=== PATIENT | female | born 1945 | race Caucasian/White ===

== ENCOUNTER 2018-08-31 18:26 | Inpatient (IN) | payer MEDICARE, OTHER ==
[~2018-08-31] VITALS: Ht 160 cm; Wt 72.6 kg
[2018-08-31] MEDS ORDERED: HYDROCODON-ACE1 EA10 PO (21:08)
[2018-08-31] MEDS ORDERED: GLUCOTROL 5 MG T5 MG PO (21:09)
[2018-08-31] MEDS ORDERED: HCTZ25 MG PO (21:10)
[2018-08-31] MEDS ORDERED: REQUIP0.25 MG PO (21:11)
[2018-08-31] MEDS ORDERED: NEURONTIN600 MG PO (21:12)
[2018-08-31] MEDS ORDERED: ELAVIL25 MG PO (21:12)
[2018-08-31] MEDS ORDERED: LIPITOR80 MG PO (21:12)
[2018-08-31] MEDS ORDERED: SILVADENE20 GM TP (21:13)
[2018-08-31] MEDS ORDERED: ZESTRIL40 MG PO (21:13)
[2018-08-31] MEDS ORDERED: PLAVIX75 MG PO (21:13)
[2018-08-31 21:35] LABS: BASOPHILS 0.2 % (0-2); EOSINOPHILS 0.2 % (0-7); HEMATOCRIT 44.5 % (36.0-48.0); HEMOGLOBIN 15.6 g/dL (12-16); IMMATURE GRANULOCYTES 0.5 % (0-5); LYMPHOCYTES 21.4 % (15-50); MCH 35.3 pg (26.0-34.0); MCHC 35.1 g/dL (31.0-37.0); MCV 100.7 fL (80.0-100.0); MEAN PLATELET VOLUME 9.3 fL (7.4-10.4); NEUTROPHILS 66.7 % (40-80); PLATELET COUNT 171 10x3/uL (130-400); RBC 4.42 10x6/uL (4.00-5.40); RDW 13.5 % (11.5-14.5); WBC 14.8 10x3/uL (4.8-10.8)
[2018-08-31 21:47] LABS: ALBUMIN 3.7 g/dL (3.4-5.0); ANION GAP 16.6 mmol/L (8-16); BILIRUBIN - TOTAL 0.86 mg/dL (0.2-1.3); CALCIUM 9.9 mg/dL (8.5-10.1); CARBON DIOXIDE 24.1 mmol/L (21.0-32.0); CREATININE - SERUM 1.1 mg/dL (0.6-1.3); POTASSIUM - SERUM 3.7 mmol/L (3.5-5.1); PROTEIN - SERUM 8.1 g/dL (6.4-8.2)
[2018-08-31 23:01] VITALS: BP 156/70; BMI 28.4
--- NOTE | 2018-08-31 23:10 | NUR ---
PT CONTINUES TO YELL HELP OUTSIDE ROOM. AT BEDSIDE. WILL CONTINUE POC.
--- NOTE | 2018-09-01 00:38 | NUR ---
DOC TO FLOOR TO ASSESS PT. ORDERED MRI BRAIN WITHOUT CONTRAST. TOLD TO GIVE 10 OF GEODON 30MIN PRIOR TO MRI. AWAITING CALL FROM RADIOLOGY FOR MRI ARRIVAL TIME TO TIME MED. ALSO OBTAINED ORDER FOR PIKE PLACEMENT. WILL CONTINUE POC.
--- NOTE | 2018-09-01 01:21 | NUR ---
RADHA GIVEN AT 0115. MRI IN BUILDING GETTING ROOM READY. WILL GIVE MEDS 25-30 MIN TO TAKE EFFECT. WILL ACCOMPANY PT TO MRI. WILL CONTINUE POC.
--- NOTE | 2018-09-01 03:37 | NUR ---
ATTEMPTED TO DO MRI BRAIN ON PT AFTER SEVERAL DOSES OF MEDS. COULD NOT GET DIAGNOSTIC IMAGES DUE TO MOTION ARTIFACT. CALLED DR TAPIA AND HE HAD ME ORDER CT BRAIN WITHOUT INSTEAD. PT TAKEN TO CT FOR SCAN PRIOR TO RETURNING TO HER ROOM. PT'S NURSE FRANCISCO YU WAS WITH ME DURING THIS PROCESS.
--- NOTE | 2018-09-01 03:43 | NUR ---
WHILE IN MRI CALLED DOC TO NOTIFY SHE WOULDNT STAY SILL HE ORDERED ANOTHER 10 OF GEODON. GIVEN IN MRI. AFTER WAITING A 25-30 MIN PT WILL NOT REMAIN STILL. GENERAL MAINTENANCE HELPER CALLED DOC AND OBTAINED ORDER FOR CT HEAD WITHOUT CONTRAST. WILL CONTINUE POC.
[2018-09-01 04:00] VITALS: BP 129/75
[2018-09-01 06:03] LABS: APPEARANCE HAZY (CLEAR); BILIRUBIN NEGATIVE (NEGATIVE); COLOR YELLOW (YELLOW); GLUCOSE NEGATIVE (NEGATIVE); KETONE NEGATIVE (NEGATIVE); NITRITE NEGATIVE (NEGATIVE); PROTEIN TRACE mg/dL (NEGATIVE); RED CELLS - URINE 0-5 /hpf (0-5); SPECIFIC GRAVITY 1.005 (1.005-1.020); UROBILINOGEN NORMAL (NORMAL)
--- NOTE | 2018-09-01 08:30 | NUR ---
PATIENT IN BED WITH IV INTACT. NO COMPLAINTS OR SIGNS OF DISTRESS. LAYING WITH EYES CLOSED. FAMILY AT BEDSIDE. CALL LIGHT WITHIN REACH.
[2018-09-01 09:33] VITALS: BP 144/72
[2018-09-01 10:13] LABS: BASOPHILS 0.2 % (0-2); EOSINOPHILS 0.5 % (0-7); HEMATOCRIT 43.9 % (36.0-48.0); HEMOGLOBIN 15.5 g/dL (12-16); IMMATURE GRANULOCYTES 0.3 % (0-5); LYMPHOCYTES 15.4 % (15-50); MCHC 35.3 g/dL (31.0-37.0); MCV 99.1 fL (80.0-100.0); MEAN PLATELET VOLUME 9.1 fL (7.4-10.4); MONOCYTES 9.6 % (2-11); PLATELET COUNT 157 10x3/uL (130-400); RBC 4.43 10x6/uL (4.00-5.40); RDW 13.4 % (11.5-14.5)
[2018-09-01 10:16] LABS: WBC 19.4 10x3/uL (4.8-10.8)
[2018-09-01 10:30] LABS: ANION GAP 19.1 mmol/L (8-16); CALCIUM 9.7 mg/dL (8.5-10.1); CARBON DIOXIDE 20.8 mmol/L (21.0-32.0); CREATININE - SERUM 1.1 mg/dL (0.6-1.3); POTASSIUM - SERUM 3.9 mmol/L (3.5-5.1)
[2018-09-01 10:56] VITALS: Ht 160 cm; Wt 72.6 kg
--- NOTE | 2018-09-01 11:10 | NUR ---
PATIENT IN BED WITH EYES OPEN AT THIS TIME. BSCDS ON AND WORKING. NO SKIN BREAKDOWN NOTED. IV INTACT. FAMILY AT BEDSIDE. CALL LIGHT WITHIN REACH. BA ON.
--- NOTE | 2018-09-01 13:55 | NUR ---
PATIENT SITTING IN BED WITH EYES OPEN, NO COMPLAINTS OR SIGNS OF DISTRESS. FAMILY AT BEDSIDE. IV INTACT. CALL LIGHT WITHIN REACH.
[2018-09-01 14:06] VITALS: BP 139/73
--- NOTE | 2018-09-01 16:30 | NUR ---
PATIENT TO GET MRI SOON. UNABLE TO TELL IF PATIENT IS GOING TO BE ABLE TO HOLD STILL. PATIENT NOT CONFUSED AND ANXIOUS LAST NIGHT. IV INTACT. PIKE INTACT. CALL LIGHT WITHIN REACH.
[2018-09-01 18:33] VITALS: BP 134/65
--- NOTE | 2018-09-01 18:55 | NUR ---
PATIENT IN BED WITH IV INTACT. NEW NICOTINE PATCH PLACED DUE TO OLD ONE FALLING OFF. PIKE INTACT. CALL LIGHT WITHIN REACH.
--- NOTE | 2018-09-01 19:15 | NUR ---
RECEIVED CARE FROM DAY NURSE. LYING IN BED ON LEFT SIDE. SPOUSE AT BEDISE. CALLING OUT AND NOT ANSWERING QUESTIONS. CALL LIGHT AT SPOUSES SIDE.
[2018-09-01 20:00] VITALS: BP 124/81
[2018-09-02] VITALS: BP 112/70
--- NOTE | 2018-09-02 02:35 | NUR ---
ASSESSED, PT IS AWAKE AND HOLLERING BUT DOSENT APPEAR TO BE IN ANY PAIN. IS AT THE BEDSIDE HOLDING HER HAND. RESPIRATIONS ARE EASY AND UNLABORED.
[2018-09-02 04:00] VITALS: BP 123/57
[2018-09-02 05:08] LABS: BASOPHILS 0.2 % (0-2); HEMATOCRIT 41.2 % (36.0-48.0); HEMOGLOBIN 14.4 g/dL (12-16); IMMATURE GRANULOCYTES 0.3 % (0-5); LYMPHOCYTES 21.1 % (15-50); MCH 35.4 pg (26.0-34.0); MEAN PLATELET VOLUME 9.1 fL (7.4-10.4); MONOCYTES 9.4 % (2-11); PLATELET COUNT 173 10x3/uL (130-400); RBC 4.07 10x6/uL (4.00-5.40); RDW 13.4 % (11.5-14.5); WBC 15.4 10x3/uL (4.8-10.8)
[2018-09-02 05:12] LABS: MCV 101.2 fL (80.0-100.0)
[2018-09-02 05:22] LABS: ANION GAP 16.1 mmol/L (8-16); CALCIUM 9.6 mg/dL (8.5-10.1); CARBON DIOXIDE 23.6 mmol/L (21.0-32.0); CREATININE - SERUM 1.3 mg/dL (0.6-1.3); POTASSIUM - SERUM 3.7 mmol/L (3.5-5.1)
[2018-09-02 08:59] VITALS: BP 134/65
--- NOTE | 2018-09-02 11:15 | NUR ---
CONFUSION NOTED WITH PRESENT. YELLS OUT AT TIMES. NPO DUE TO DYSPHASIA. PATIENT ALSSO HAVING INSOMNIA PIKE CATH PATENT WITH SAM URINE. FALL RISK INTERVENTIONS IN PLACE.ENCOURAGE TO USE CALL LIGHT FOR ASSIST.LT. HEMIPARALYSIS NOTED.
[2018-09-02 13:20] VITALS: BP 148/86
[2018-09-02 17:21] VITALS: BP 158/84
--- NOTE | 2018-09-02 19:15 | NUR ---
RECEIVED CARE FROM DAY NURSE. LYING IN BED WITH SPOUSE AT SIDE. CALLING OUT. SPOUSE REPORTS NO NEEDS AT THIS TIME. PROCAL AND NS INFUSING TO LEFT FA. CALL LIGHT AT SPOUSES SIDE.
[2018-09-02 19:56] VITALS: BP 137/77
[2018-09-03 04:00] VITALS: BP 112/74
--- NOTE | 2018-09-03 05:44 | NUR ---
RN NOTE: PT BATHED AND ALL LINEN AND GOWN CHANGED. HEELS BRIDGED. SCD'S IN PLACE IV IN LEFT FA PATENT WITH PROCAL INFUSING AT 50 ML / HR. AND NS INFUSING AT 50 ML / HR. SPOUSE IS AT BEDSIDE. WILL CONTINUE TO MONITOR FOR NEEDS. CALL LIGHT WITHIN REACH.
[2018-09-03 06:31] LABS: BASOPHILS 0.2 % (0-2); EOSINOPHILS 2.5 % (0-7); HEMATOCRIT 37.5 % (36.0-48.0); HEMOGLOBIN 12.9 g/dL (12-16); IMMATURE GRANULOCYTES 0.2 % (0-5); LYMPHOCYTES 21.9 % (15-50); MCH 34.8 pg (26.0-34.0); MCHC 34.4 g/dL (31.0-37.0); MCV 101.1 fL (80.0-100.0); MEAN PLATELET VOLUME 9.2 fL (7.4-10.4); MONOCYTES 7.1 % (2-11); NEUTROPHILS 68.1 % (40-80); PLATELET COUNT 142 10x3/uL (130-400); RBC 3.71 10x6/uL (4.00-5.40); RDW 13.5 % (11.5-14.5)
[2018-09-03 06:55] LABS: ANION GAP 18.6 mmol/L (8-16); CALCIUM 9.1 mg/dL (8.5-10.1); CARBON DIOXIDE 19.4 mmol/L (21.0-32.0)
[2018-09-03 08:32] VITALS: BP 133/58
--- NOTE | 2018-09-03 10:19 | NUR ---
ALERT TO SELF AND . DECREASED YELLING NOTED. STATED SLEPT BETTER LAST NIGHT. IVF INFUSING AT PRESCRIBED RATE VIA LT. FOREARM. ELECTOLYTE PROTOCOL ESTABLISHED FOR k-3.0. LT. HEMIPARALYSIS NOTED. LUNGS CTA. PIKE CATH PATENT WITH SAM URINE.ENCOURAGED TO USE CALL LIGHT FOR ASSIST.
[2018-09-03 16:58] VITALS: BP 157/84
--- NOTE | 2018-09-03 19:15 | NUR ---
RECEIVED CARE FROM DAY NURSE. LYING IN BED ON SIDE. SPOUSE AT BEDSIDE. PT NOW ABLE TO ANSWER QUESTIONS AND THUS FAR HAS NOT CALLED OUT. IV TO LEFT FA PATENT AND INFUSING NS AND PROCAL PER ORDER. NO NEEDS VOICED AT THIS TIME.
[2018-09-03 20:00] VITALS: BP 149/58
--- NOTE | 2018-09-04 03:32 | NUR ---
RESTING QUITELY IN BED RESP UNLABOARED NO APPARENT DISTRESS CALL LIGHT IN REACH
[2018-09-04 04:00] VITALS: BP 98/64
--- NOTE | 2018-09-04 05:20 | NUR ---
IV IN LEFT FA LEAKING RED AND SWOLLEN. DC'D WITH TIP INTACT. RESTIED TO RIGHT FA. 20 GUAGE X1 STICK WITH GOOD BLOOD RETURN NOTED. NEW BAND AID APPLIED TO LEFT FA QUARTER SIZED SKIN TEAR.
[2018-09-04 06:26] LABS: BASOPHILS 0.2 % (0-2); EOSINOPHILS 4.5 % (0-7); HEMATOCRIT 35.1 % (36.0-48.0); HEMOGLOBIN 11.9 g/dL (12-16); IMMATURE GRANULOCYTES 0.3 % (0-5); LYMPHOCYTES 18.8 % (15-50); MCH 34.3 pg (26.0-34.0); MCHC 33.9 g/dL (31.0-37.0); MCV 101.2 fL (80.0-100.0); MEAN PLATELET VOLUME 9.5 fL (7.4-10.4); MONOCYTES 7.3 % (2-11); NEUTROPHILS 68.9 % (40-80); PLATELET COUNT 134 10x3/uL (130-400); RBC 3.47 10x6/uL (4.00-5.40); RDW 13.5 % (11.5-14.5); WBC 10.1 10x3/uL (4.8-10.8)
[2018-09-04 06:46] LABS: CARBON DIOXIDE 17.5 mmol/L (21.0-32.0); CREATININE - SERUM 0.9 mg/dL (0.6-1.3); POTASSIUM - SERUM 3.5 mmol/L (3.5-5.1)
[2018-09-04 08:25] VITALS: BP 151/50
--- NOTE | 2018-09-04 10:25 | NUR ---
MORE ALERT TO PERSON AND FAMILIAR FACES. EXPRESSIVE APHASIA NOTED. REPOSITIOED QW 2 HRS. SPEECH HERE FOR BED SIDE SWALLOW STUDY.LUNGS CTA ABDOMEN SOFT WITH BS NOTED. IVF INFUSING AT PRESRIBED RATE. LT. HEMIPARALYSIS NOTED. ENCOURAGED TO USE CALL LIGHT FOR ASSIST.
[2018-09-04 13:31] VITALS: BP 143/63
--- NOTE | 2018-09-04 15:04 | NUR ---
NUTRITION F/U CHART REVIEWED. PT CONTINUES PROCALAMINE AT 50 CC/HR. SPEECH NOTE REVIEWED. TO START PUREED DIET WITH THIN LIQUIDS. RD FOLLOWING
[2018-09-04 17:05] VITALS: BP 153/56
--- NOTE | 2018-09-04 19:06 | NUR ---
LCTA BOWEL SOUNDS X4 PIKE TO GRAVITY FIXED LOOP AT THIS TIME SCD REPLACED PT CO OF PAIN IN RT KNEE OF 10..SEE MAR SRUP X2 BED LOW AND CALL LIGHT IS IN REACH, FAMILY IS ALSO PRESENT
[2018-09-04 20:00] VITALS: BP 123/54
--- NOTE | 2018-09-05 01:02 | NUR ---
AT RESTY WITH EYES CLOSED BED LOW SRX2 AND CALL LIGHT IN REACH
--- NOTE | 2018-09-05 02:53 | NUR ---
EYES CLOSED RESPIRATIONS WITH EASE AND UNLABORED. SR UP X2 CALL LIGHT WITHIN REACH.
[2018-09-05 04:00] VITALS: BP 153/50
[2018-09-05 06:10] LABS: BASOPHILS 0.3 % (0-2); EOSINOPHILS 7.1 % (0-7); HEMATOCRIT 32.8 % (36.0-48.0); HEMOGLOBIN 11.2 g/dL (12-16); IMMATURE GRANULOCYTES 0.4 % (0-5); MCH 34.6 pg (26.0-34.0); MCHC 34.1 g/dL (31.0-37.0); MCV 101.2 fL (80.0-100.0); MEAN PLATELET VOLUME 9.3 fL (7.4-10.4); NEUTROPHILS 61.2 % (40-80); PLATELET COUNT 127 10x3/uL (130-400); RBC 3.24 10x6/uL (4.00-5.40); RDW 13.4 % (11.5-14.5); WBC 7.9 10x3/uL (4.8-10.8)
[2018-09-05 06:16] LABS: ANION GAP 15.4 mmol/L (8-16); CALCIUM 8.4 mg/dL (8.5-10.1); CARBON DIOXIDE 18.8 mmol/L (21.0-32.0); CREATININE - SERUM 0.9 mg/dL (0.6-1.3); POTASSIUM - SERUM 3.2 mmol/L (3.5-5.1)
[2018-09-05 07:41] VITALS: BP 135/53
--- NOTE | 2018-09-05 08:02 | NUR ---
RESTING QUIETLY WITH EYES CLOSED. ROUSES TO VERBAL STIMULATION. ORIENTED TO SELF. ANSWERS QUESTIONS APPROPRIATELY. SKIN IS INTACT WITHOUT REDNESS. LUNGS ARE CLEAR BILATERALLY, NO COUGH NOTED. IV TO RIGHT FOREARM IS PATENT WITHOUT REDNESS AT INSERTION SITE. PIKE PATENT WITH CLEAR YELLOW URINE. DENIES NEEDS. FAMILY AT BEDSIDE.
[2018-09-05 08:30] VITALS: BP 135/53
--- NOTE | 2018-09-05 09:45 | NUR ---
REQUESTED AND GIVEN 50MG ULTRAM PO FOR C/O NECK PAIN LEVEL 10. WILL MONITOR.
--- NOTE | 2018-09-05 10:29 | MORECARE ---
CASE MANAGEMENT DISCHARGE SUMMARY PATIENT: ANNIKA GOLDSTEIN UNIT: [id number] ADM DATE: 08/31/18 AGE: 73 : 45 SEX: F ROOM/BED: D.2232 AUTHOR: MATEODOC PHYSICIAN: REFERRING PHYSICIAN: ALLISON TAPIA MD DATE OF SERVICE: 09/05/18 Discharge Plan Patient Name: ANNIKA GOLDSTEIN Facility: [facility]:[place] : 1945 Planned Disposition: Shelter Facility Anticipated Discharge Date: Discharge Date: Expected LOS: Initial Reviewer: [email or web address] Initial Review Date: 09/05/2018 Generated: 09/05/18 11:29 am Comments DCP- Discharge Planning Updated by [email or web address]: Cristel Rodríguez on 09/05/18 9:[address] Patient Name: ANNIKA GOLDSTEIN Admission Status: Elective Accout number: [id number] Admission Date: 08-31-2018 : 1945 Admission Diagnosis:DISORIENTATION, UNSPECIFIED Attending: ALLISON TAPIA Current LOS: 5 Anticipated DC Date: Planned Disposition: Shelter Facility Primary Insurance: MEDICARE A & B Discharge Planning Comments: CM met with patient, she is able to answer some questions asked. She gives me verbal permission to call her for discharge planning. I called her for discharge planning. He states the patient is wheelchair or bed bound. States she does have an electric wheelchair. States he would like her to go to [facility] in [place] prior to coming home to see if she is able to strengthen. I called [facility] and spoke to Kiesha and clinical [facility] [phone]. Inventory Control Manager: Cristel Rodríguez DCPIA - Discharge Planning Initial Assessment Updated by [email or web address]: Cristel Rodríguez on 09/05/18 10:21 am * Is the patient Alert and Oriented? No * Pharmacy [facility] in [place] * Preadmission Environment Home with Family * ADLs Total Dependent * Equipment Other Shower Chair Wheelchair * Other Equipment Electric wheelchair * List name and contact numbers for known caregivers / representatives who currently or will assist patient after discharge: Mynor Goldstein - spouse- [phone] Jose Garcia - son - [phone] * Verbal permission to speak to the caregivers and representatives has been obtained from the patient. N/A * Community resources currently utilized None * Additional services required to return to the preadmission environment? Yes * Can the patient safely return to the preadmission environment? No * Has this patient been hospitalized within the prior 30 days at any hospital? No Patient Name: ANNIKA GOLDSTEIN Page [id number] at 1029 All edits/amendments must be made on the electronic document DICTATION DATE: 09/05/18 1029 RURAL MAIL CARRIER: THU 09/05/18 1029 RPT#: [id number] DC DATE: STATUS: ADM IN [facility] [address] [place] [address] END OF REPORT
--- NOTE | 2018-09-05 10:47 | MORECARE ---
CASE MANAGEMENT DISCHARGE SUMMARY PATIENT: ANNIKA GOLDSTEIN UNIT: [id number] ADM DATE: 08/31/18 AGE: 73 : 45 SEX: F ROOM/BED: D.2232 AUTHOR: MATEODOC PHYSICIAN: REFERRING PHYSICIAN: ALLISON TAPIA MD DATE OF SERVICE: 09/05/18 Discharge Plan Patient Name: ANNIKA GOLDSTEIN Facility: [facility]:[place] : 1945 Planned Disposition: Care Home Facility Anticipated Discharge Date: Discharge Date: Expected LOS: Initial Reviewer: [email or web address] Initial Review Date: 09/05/2018 Generated: 09/05/18 11:47 am Comments DCP- Discharge Planning Updated by [email or web address]: Cristel Rodríguez on 09/05/18 9:[address] Patient Name: ANNIKA GOLDSTEIN Admission Status: Elective Accout number: [id number] Admission Date: 08-31-2018 : 1945 Admission Diagnosis:DISORIENTATION, UNSPECIFIED Attending: ALLISON TAPIA Current LOS: 5 Anticipated DC Date: Planned Disposition: Care Home Facility Primary Insurance: MEDICARE A & B Discharge Planning Comments: CM met with patient, she is able to answer some questions asked. She gives me verbal permission to call her for discharge planning. I called her for discharge planning. He states the patient is wheelchair or bed bound. States she does have an electric wheelchair. States he would like her to go to [facility] in [place] prior to coming home to see if she is able to strengthen. I called [facility] and spoke to Kiesha and clinical faxed for [facility]: [phone]. Vice President Mission Integration: Cristel Rodríguez DCPIA - Discharge Planning Initial Assessment Updated by [email or web address]: Cristel Rodríguez on 09/05/18 10:21 am * Is the patient Alert and Oriented? No * Pharmacy [facility] in [place] * Preadmission Environment Home with Family * ADLs Total Dependent * Equipment Other Shower Chair Wheelchair * Other Equipment Electric wheelchair * List name and contact numbers for known caregivers / representatives who currently or will assist patient after discharge: Mynor Goldstein - spouse- [phone] Jose Garcia - son - [phone] * Verbal permission to speak to the caregivers and representatives has been obtained from the patient. N/A * Community resources currently utilized None * Additional services required to return to the preadmission environment? Yes * Can the patient safely return to the preadmission environment? No * Has this patient been hospitalized within the prior 30 days at any hospital? No External Providers External Provider: OTHER-OTHER Next Contact Date: Service Request Date: Service Type: Resolution: Reviewer: Comments: Last DP export: 09/05/18 9:29 am Patient Name: ANNIKA GOLDSTEIN Page [phone] at 1047 All edits/amendments must be made on the electronic document DICTATION DATE: 09/05/181046 NATURALIZATION EXAMINER: THU 09/05/18 1047 RPT#: [id number] DC DATE: STATUS: ADM IN [facility] [address] [place] [address] END OF REPORT
[2018-09-05 12:30] VITALS: BP 127/49
--- NOTE | 2018-09-05 15:04 | NUR ---
INCONTINENT OF LOOSE WATERY STOOL. SKIN CARE PER STAFF. POSITIONED IN BED FOR COMFORT. STAGE 2 TO LEFT BUTTOCK NOTED. APPROXIMATLY THE SIZE OF A HALF DOLLAR, NO DRAINAGE NOTED. SEMI SCABBED OVER.
--- NOTE | 2018-09-05 16:00 | NUR ---
PIKE D/C WITH TIP INTACT WITHOUT DIFFICULTY. REQUESTED BED KAUR AFTER REMOVAL. NO VOID AT THIS TIME.
--- NOTE | 2018-09-05 17:49 | NUR ---
OT NOTE: PT COMPLETED BED MOB WITH EXTENSIVE A . POSITIONING OF LUE TO DECREASE RISK OF SKIN BREAKDOWN. PT REQUIRED EXTENSIVE A WITH HYGIENE. THANK YOU, YANI APODACA
[2018-09-05 18:05] VITALS: BP 157/67
--- NOTE | 2018-09-05 19:08 | NUR ---
ATE ONLY ABOUT 25% OF SUPPER. INCONTINENT LARGE AMOUNT OF URINE. SKIN CARE PER STAFF. LINENS CHANGED. AT BEDSIDE. NO CHANGES NOTED.
[2018-09-05 20:00] VITALS: BP 143/50
--- NOTE | 2018-09-05 21:05 | NUR ---
AWAKE AND ALERT BED LOW SRX2 AND CALL LIGHT IN REACH...NO COMPLAINT OF PAIN AT THIS TIME. LCTA SKIN WARM AND DRY BOWEL SOUNDS TIME 4 .... LEFT SIDE EFFECTED BY PREVIOUS STROKE
[2018-09-06] VITALS: BP 140/60
--- NOTE | 2018-09-06 04:49 | NUR ---
PT CLEANED AND LINNEN CHANGED BY STAFF. DENIES PAIN AT THIS TIME
[2018-09-06 05:20] VITALS: BP 152/58
[2018-09-06 05:49] LABS: ALBUMIN 2.7 g/dL (3.4-5.0); ALKALINE PHOSPHATASE 60 U/L (46-116); ALT (SGPT) 42 U/L (10-68); BILIRUBIN - TOTAL 0.58 mg/dL (0.2-1.3); CALC OSMOLALITY 279 mosm/kg (275-300); CALCIUM 8.4 mg/dL (8.5-10.1); CARBON DIOXIDE 16.9 mmol/L (21.0-32.0); CHLORIDE - SERUM 106 mmol/L (98-107); CREATININE - SERUM 0.7 mg/dL (0.6-1.3); GLUCOSE 116 mg/dL (74-106); POTASSIUM - SERUM 3.6 mmol/L (3.5-5.1); PROTEIN - SERUM 5.9 g/dL (6.4-8.2); SODIUM 138 mmol/L (136-145); UREA NITROGEN 21 mg/dL (7-18); eGFR NON AFRICAN AMERICAN 87 mL/min (90-120)
[2018-09-06 06:33] LABS: BASOPHILS 0.4 % (0-2); EOSINOPHILS 5.7 % (0-7); HEMOGLOBIN 10.5 g/dL (12-16); IMMATURE GRANULOCYTES 0.4 % (0-5); LYMPHOCYTES 25.4 % (15-50); MCH 34.2 pg (26.0-34.0); MCHC 33.9 g/dL (31.0-37.0); MEAN PLATELET VOLUME 9.7 fL (7.4-10.4); MONOCYTES 9.8 % (2-11); NEUTROPHILS 58.3 % (40-80); PLATELET COUNT 125 10x3/uL (130-400); RBC 3.07 10x6/uL (4.00-5.40); RDW 13.4 % (11.5-14.5); WBC 7.2 10x3/uL (4.8-10.8)
--- NOTE | 2018-09-06 08:10 | NUR ---
AWAKE AND ALERT. ORIENTED X3. NO C/O AT THIS TIME. LUNGS ARE CLEAR BILATERALLY, NO COUGH NOTED. SKIN IS INTACT WITHOUT REDNESS EXCEPT SMALL STAGE 2 TO LEFT BUTTOCK WHICH FAMILY REPORTS HAVING BEEN THERE. FOUND WITH IV PULLED OUT WITH CATHETER INTACT. RESITED TO RIGHT FOREARM AFTER ONE ATTEMPT WITH 20G. AT BEDSIDE. DENIES NEEDS.
--- NOTE | 2018-09-06 09:00 | NUR ---
TOOK AM MEDS WITHOUT DIFFICULTY. THREW UP ALMOST IMMEDIATELY. SKIN CARE AND LINENS CHANGED PER STAFF. INCONTINENT OF URINE WELL. DENIES NEEDS. AT BEDSIDE.
[2018-09-06 09:07] VITALS: BP 111/69; BP 122/68; BP 99/64
--- NOTE | 2018-09-06 10:30 | NUR ---
UP TO WC PER PT. TOOLING AROUND WITH AT THIS TIME.
[2018-09-06 13:49] VITALS: BP 126/85
[2018-09-06 16:45] VITALS: BP 98/66
--- NOTE | 2018-09-06 18:12 | NUR ---
OT NOTE: PT COMPLETED LUE POSITIONING TO DECREASE RISK OF SKIN BREAKDOWN. PT COMPLETED RUE AROM EXS. PT COMPLETED FACE CLEANING WITH SETUP. THANK YOU, YANI APODACA
[2018-09-06 21:20] VITALS: BP 93/45
[2018-09-07 00:30] VITALS: BP 94/54
[2018-09-07 05:45] VITALS: BP 78/45
[2018-09-07 06:56] LABS: BASOPHILS 0.3 % (0-2); EOSINOPHILS 5.3 % (0-7); HEMATOCRIT 30.6 % (36.0-48.0); HEMOGLOBIN 10.6 g/dL (12-16); IMMATURE GRANULOCYTES 0.5 % (0-5); MCH 34.3 pg (26.0-34.0); MCHC 34.6 g/dL (31.0-37.0); MEAN PLATELET VOLUME 9.1 fL (7.4-10.4); MONOCYTES 9.4 % (2-11); NEUTROPHILS 65.5 % (40-80); PLATELET COUNT 118 10x3/uL (130-400); RBC 3.09 10x6/uL (4.00-5.40); RDW 13.2 % (11.5-14.5); WBC 6.3 10x3/uL (4.8-10.8)
[2018-09-07 07:33] LABS: ALBUMIN 2.7 g/dL (3.4-5.0); ANION GAP 16.5 mmol/L (8-16); BILIRUBIN - TOTAL 0.55 mg/dL (0.2-1.3); CALCIUM 8.5 mg/dL (8.5-10.1); CARBON DIOXIDE 17.9 mmol/L (21.0-32.0); CREATININE - SERUM 0.8 mg/dL (0.6-1.3); POTASSIUM - SERUM 3.4 mmol/L (3.5-5.1); PROTEIN - SERUM 6.1 g/dL (6.4-8.2)
[2018-09-07 08:45] VITALS: BP 116/40
--- NOTE | 2018-09-07 09:20 | NUR ---
OT NOTE: PROM TO L UE...VERY HIGH TONE NOTED IN UE/LE THIS AM. BED MOB WITH MOD ASSIST; TRANSFER WITH MAX ASSIST FROM BED TO WC; SITTING BALANCE ACT ON EDGE OF BED WITH MOD ASSIST FOR SUPPORT. COLE DELATORRE, OTR/L
[2018-09-07 12:54] VITALS: BP 116/40
--- NOTE | 2018-09-07 13:08 | MORECARE ---
CASE MANAGEMENT DISCHARGE SUMMARY PATIENT: ANNIKA GOLDSTEIN UNIT: [id number] ADM DATE: 08/31/18 AGE: 73 : 45 SEX: F ROOM/BED: D.2232 AUTHOR: MATEODOC PHYSICIAN: REFERRING PHYSICIAN: ALLISON TAPIA MD DATE OF SERVICE: 09/07/18 Discharge Plan Patient Name: ANNIKA GOLDSTEIN Facility: [facility]:[place] : 1945 Planned Disposition: Correction Facility Anticipated Discharge Date: Discharge Date: Expected LOS: Initial Reviewer: [email or web address] Initial Review Date: 09/05/2018 Generated: 09/07/18 2:08 pm Comments DCP- Discharge Planning Updated by [email or web address]: Cristel Rodríguez on 09/07/18 12:[address] Received authorization from Kiesha at [facility] [place] that she will be accepted today to a skilled bed. is in the room and in agreement to discharge. Bridget has asked EMS if can ride in ambulance and they state that it is up to whoever picks her up. I informed the the information and he states he will have someone come and pick him up. IMM explained to and patient, understood and signed, copy placed on chart. I instructed Radha to give the last dose of Vancomycin prior to discharge. She will go to a skilled bed via ambulance today. DCP- Discharge Planning Updated by [email or web address]: Cristel Rodríguez on 09/05/18 9:[address] Patient Name: ANNIKA GOLDSTEIN Admission Status: Elective Accout number: [id number] Admission Date: 08-31-2018 : 1945 Admission Diagnosis:DISORIENTATION, UNSPECIFIED Attending: ALLISON TAPIA Current LOS: 5 Anticipated DC Date: Planned Disposition: Correction Facility Primary Insurance: MEDICARE A & B Discharge Planning Comments: CM met with patient, she is able to answer some questions asked. She gives me verbal permission to call her for discharge planning. I called her for discharge planning. He states the patient is wheelchair or bed bound. States she does have an electric wheelchair. States he would like her to go to [facility] [place] prior to coming home to see if she is able to strengthen. I called [facility] and spoke to Kiesha and clinical faxed for admission to skilled bed. [facility]: Kiesha: [phone]. Irrigation Manager: Cristel Anne DCPIA - Discharge Planning Initial Assessment Updated by [email or web address]: Cristel Rodríguez on 09/05/18 10:21 am * Is the patient Alert and Oriented? No * Pharmacy [facility] in [place] * Preadmission Environment Home with Family * ADLs Total Dependent * Equipment Other Shower Chair Wheelchair * Other Equipment Electric wheelchair * List name and contact numbers for known caregivers / representatives who currently or will assist patient after discharge: Mynor Goldstein - spouse- [phone] Jose Garcia - son - [phone] * Verbal permission to speak to the caregivers and representatives has been obtained from the patient. N/A * Community resources currently utilized None * Additional services required to return to the preadmission environment? Yes * Can the patient safely return to the preadmission environment? No * Has this patient been hospitalized within the prior 30 days at any hospital? No Coverage Notice Reviewer: [id number] - Crsitel Rodríguez Notice Issued Date-Time: 09/07/2018 12:57 Notice Type: IM Discharge Notice Notice Delivered To: Family Member Relationship to Patient: Spouse Tax Analyst Name: Mynor Goldstein Delivery Method: - Lorena Days: Prior Verbal Notification: Recipient Understood Notice: Recipient Signature: Med Rec Note Co-signed by Attending: Coverage Notice Comment: Last DP export: 09/05/18 9:47 am Patient Name: NICOLE GOLDSTEINALDO Page [phone] at 1308 All edits/amendments must be made on the electronic document DICTATION DATE: 09/07/18 1307 PRODUCT SAFETY ADMINISTRATOR: THU 09/07/18 1307 RPT#: [id number] DC DATE: STATUS: ADM IN [facility] [address] [place] [address] END OF REPORT
[2018-09-07] MEDS ORDERED: HYDROCODON-ACE1 EA10 PO (13:09)
--- NOTE | 2018-09-07 13:46 | NUR ---
REPORT CALLED TO KARAN AT [facility] AT [phone], TOM CONTACTED AMBULANCE, VANCOMYCIN INFUSING VIA RT. FOREARM. C/L WITHIN REACH AND SR'S UP X'S 2.
--- NOTE | 2018-09-07 14:16 | NUR ---
PATIENT AND READY FOR DISCHARGE, REPORT CALLED TO KARAN [facility]IMBROUGH [facility] AT [phone], AMBULANCE IN ROUTE TO FACILITY. DISCHARGE INSTRUCTIONS GIVEN TO AND VERBALIZED UNDERSTANDING OF DISCHARGE INSTRUCTIONS. IV D/C'D PER ORDERS. PT REQUESTED PAIN PILL FOR FOOT AND ULTRAM 50 MG 1 PO GIVEN.
--- NOTE | 2018-09-07 15:43 | NUR ---
PATIENT DISCHARGE VIA [facility] WITH TELEMETRY D/C'D AND TAKEN TO MED 2 AND GIVEN TO HAIDER. ALL BELONGINGS AND DISCHARGE INSTRUCTIONS SENT WITH PATIENT.
--- NOTE | 2018-09-07 23:14 | NUR ---
OT NOTE: PT COMPLETED BED MOB WITH JAKUB Hull. PT COMPLETED HYGIENE TASK WITH JAKUB Hull. THANK YOU, YANI APODACA
--- NOTE | 2018-09-08 09:09 | MORECARE ---
CASE MANAGEMENT DISCHARGE SUMMARY PATIENT: ANNIKA GOLDSTEIN UNIT: [id number] ADM DATE: 08/31/18 AGE: 73 : 45 SEX: F ROOM/BED: D.2232 AUTHOR: MATEODOC PHYSICIAN: REFERRING PHYSICIAN: ALLISON TAPIA MD DATE OF SERVICE: 09/08/18 Discharge Plan Patient Name: ANNIKA GOLDSTEIN Facility: [facility]:[place] : 1945 Planned Disposition: Mcfp Facility Anticipated Discharge Date: Discharge Date: 09/07/2018 Expected LOS: 0 Initial Reviewer: [email or web address] Initial Review Date: 09/05/2018 Generated: 09/08/18 10:09 am Comments DCP- Discharge Planning Updated by [email or web address]: Cristel Rodríguez on 09/07/18 12:[address] Received authorization from Kiesha at [facility] in [place] that she will be accepted today to a skilled bed. is in the room and in agreement to discharge. Bridget has asked EMS if can ride in ambulance and they state that it is up to whoever picks her up. I informed the the information and he states he will have someone come and pick him up. IMM explained to and patient, understood and signed, copy placed on chart. I instructed Radha to give the last dose of Vancomycin prior to discharge. She will go to a skilled bed via ambulance today. DCP- Discharge Planning Updated by [email or web address]: Cristel Rodríguez on 09/05/18 9:[address] Patient Name: ANNIKA GOLDSTEIN Admission Status: Elective Accout number: [id number] Admission Date: 08-31-2018 : 1945 Admission Diagnosis:DISORIENTATION, UNSPECIFIED Attending: ALLISON TAPIA Current LOS: 5 Anticipated DC Date: Planned Disposition: [facility]fp Facility Primary Insurance: MEDICARE A & B Discharge Planning Comments: CM met with patient, she is able to answer some questions asked. She gives me verbal permission to call her for discharge planning. I called her for discharge planning. He states the patient is wheelchair or bed bound. States she does have an electric wheelchair. States he would like her to go to [facility] [place] prior to coming home to see if she is able to strengthen. I called [facility] and spoke to Kiesha and clinical faxed for admission to skilled bed. [facility]: Kiesha: [phone]. Director Geothermal Operations: Cristel Rodríguez DCPIA - Discharge Planning Initial Assessment Updated by [email or web address]: Cristel Rodríguez on 09/05/18 10:21 am * Is the patient Alert and Oriented? No * Pharmacy [facility] in [place] * Preadmission Environment Home with Family * ADLs Total Dependent * Equipment Other Shower Chair Wheelchair * Other Equipment Electric wheelchair * List name and contact numbers for known caregivers / representatives who currently or will assist patient after discharge: Mynor Goldstein - spouse- [phone] Jose Garcia - son - [phone] * Verbal permission to speak to the caregivers and representatives has been obtained from the patient. N/A * Community resources currently utilized None * Additional services required to return to the preadmission environment? Yes * Can the patient safely return to the preadmission environment? No * Has this patient been hospitalized within the prior 30 days at any hospital? No Coverage Notice Reviewer: [id number] - Cristel Rodríguez Notice Issued Date-Time: 09/07/2018 12:57 Notice Type: IM Discharge Notice Notice Delivered To: Family Member Relationship to Patient: Spouse Hydro Sprayer Operator Name: Mynor Goldstein Delivery Method: - Lorena Days: Prior Verbal Notification: Recipient Understood Notice: Recipient Signature: Med Rec Note Co-signed by Attending: Coverage Notice Comment: Last DP export: 09/07/18 12:08 pm Patient Name: NICOLE GOLDSTEINALDO Page 25667 at 0909 All edits/amendments must be made on the electronic document DICTATION DATE: 09/08/18907 CHAIN TENDER: THU 09/08/18907 RPT#: [id number] DC DATE:09/07/18 STATUS: DIS IN [facility] [address] [place] [address] END OF REPORT
== END 2018-09-07 15:45 | DRG 64 ==
LOC: D.MS 18:26
PROVIDERS: Family Medicine; ADMIT Internal Medicine Nephrology
DX: I63.9 Cerebral infarction, unspecified (principal); R53.2 Functional quadriplegia; G93.40 Encephalopathy, unspecified; I69.354 Hemiplegia and hemiparesis following cerebral infarction affecting left non-dominant side; N39.0 Urinary tract infection, site not specified; F17.213 Nicotine dependence, cigarettes, with withdrawal; G93.49 Other encephalopathy; E11.9 Type 2 diabetes mellitus without complications; I10 Essential (primary) hypertension; R40.2353 Coma scale, best motor response, localizes pain, at hospital admission; R40.2143 Coma scale, eyes open, spontaneous, at hospital admission; R40.2243 Coma scale, best verbal response, confused conversation, at hospital admission